=== PATIENT | male | born 1985 | race Hispanic/Latino ===

== ENCOUNTER 2018-01-22 21:22 | Emergency (ER) | payer SELFPAY ==
[~2018-01-22] VITALS: Ht 157.5 cm; Wt 68.2 kg
[2018-01-22 21:35] VITALS: BP 146/81
== END 2018-01-22 21:36 | disposition home or self-care (01) ==
LOC: EME 21:22
DX: S21.109A Unspecified open wound of unspecified front wall of thorax without penetration into thoracic cavity, initial encounter (principal); F10.129 Alcohol abuse with intoxication, unspecified; Y35.893A Legal intervention involving other specified means, suspect injured, initial encounter
CPT/HCPCS: 99281; 99283